=== PATIENT | male | born 1985 | race African-American/Black ===

== ENCOUNTER 2024-04-11 20:47 | Emergency (ER) | payer MEDICAID, OTHER ==
[~2024-04-11] VITALS: Ht 180.3 cm; Wt 84.2 kg
[2024-04-11 21:14] LABS: APPEARANCE, URINE CLOUDY (CLEAR); BACTERIA, URINE AUTO NEGATIVE (NEGATIVE); BILIRUBIN, URINE AUTO NEGATIVE (NEGATIVE); BLOOD, URINE BLOOD 1+ (NEGATIVE); COLOR, URINE AMBER (YELLOW); GLUCOSE, URINE (UA) AUTO NEGATIVE (NEGATIVE); KETONE, URINE AUTO NEGATIVE (NEGATIVE); LEUKOCYTE ESTERASE, URINE AUTO 3+ (NEGATIVE); MUCUS, URINE LARGE (NEGATIVE); NITRITE, URINE AUTO NEGATIVE (NEGATIVE); PROTEIN, URINE AUTO 2+ mg/dL (NEGATIVE); RBC, URINE AUTO 56 /HPF (0-3); SPECIFIC GRAVITY URINE AUTO 1.025 (1.002-1.035); SQUAMOUS EPITHELIAL CELL UR AU 0 /HPF (0-6); WBC, URINE AUTO TNTC /HPF (0-3)
[2024-04-11 22:38] LABS: Trichomonas vaginalis (AMP) NOT DETECTED (NEGATIVE)
[2024-04-11 23:02] LABS: GC DNA AMPLIFICATION POSITIVE (NEGATIVE)
[2024-04-12 04:37] VITALS: BP 119/58; TEMP 97.9; O2SAT 97
[2024-04-12] MEDS: cefTRIAXone 500MG VIAL IM ONE (05:12)
[2024-04-12] MEDS: LIDOCAINE 1% SDV 5ML VIAL DILUENT ONE (05:12)
== END 2024-04-12 05:17 | disposition home or self-care (01) ==
LOC: M ED 20:47
DX: A54.9 Gonococcal infection, unspecified (principal)
CPT/HCPCS: 81001; 87661; 87810; 87850; 96372; 99283; J0696